=== PATIENT | female | born 1985 | race Caucasian/White ===

== ENCOUNTER 2017-01-24 20:37 | Emergency (ER) | payer MEDICARE ==
[~2017-01-24] VITALS: Ht 172.7 cm; Wt 88.6 kg
[~2017-01-24 20:37] MED LIST: SERT100T
[2017-01-24 21:52] LABS: WHITE BLOOD COUNT 9.1 x10^3/uL (3.4-10)
[2017-01-24 22:04] LABS: BLOOD UREA NITROGEN 11 mg/dL (7-18)
[2017-01-24 22:07] LABS: ASPARTATE AMINO TRANSFERASE 20 U/L (15-37)
[2017-01-24 22:39] LABS: HCG UR OBC PASS
[2017-01-24 23:27] VITALS: BP 121/76
== END 2017-01-24 23:30 | disposition home or self-care (01) ==
LOC: ED 23:17
DX: R10.84 Generalized abdominal pain (principal); F17.210 Nicotine dependence, cigarettes, uncomplicated
CPT/HCPCS: 36415; 76830; 80053; 81003; 81025; 83690; 85025; 99285